=== PATIENT | male | born 1955 | race Caucasian/White ===

== ENCOUNTER 2017-06-11 13:20 | Emergency (ER) | payer OTHER ==
[2017-06-11] MEDS ORDERED: Diph,Pert(Acell),Tet Vac 0.5 ML SYR IM ONE (13:48)
--- NOTE | 2017-06-11 14:17 | Emergency Department Record ---
History of Present Illness - General Chief Complaint: Laceration(s) Stated Complaint: LACERATION ON LEFT KNEE Time Seen by Provider: 06/11/17 13:38 Source: Patient Mode of Arrival: Ambulatory Limitations: No limitations - History of Present Illness Initial Commments: pt cut knee w chain saw, it bounced against him. he wants a tetnus and insists on pcn for prophylaxis since he is a diabetic and it is a dirty wound Onset/Timin -: Minutes(s) Extremity Location: Left: Knee Place: Outdoors Context: Power tool use Associated Symptoms: None - [place] Coma Scale Eye Response: (4) Open spontaneously Motor Response: (6) Obeys commands Verbal Response: (5) Oriented [place] Total: 15 - Related Data Hx Tetanus Toxoid Vaccination: Yes Year of Tetanus Vaccination: unknown Home Medications Medication Instructions Recorded Confirmed Last Taken Glipizide [Glipizide ER] 5 mg PO DAILY 08/27/14 06/11/17 06/11/17 Irbesartan [Avapro] 300 mg PO DAILY 08/27/14 06/11/17 06/11/17 Allergies Allergy/AdvReac Type Severity Reaction Status Date / Time No Known Drug Allergies Allergy Verified 06/11/17 13:30 Travel Screening - Travel/Exposure Within Last 30 Days Have you traveled within the last 30 days?: No - Travel/Exposure Within Last Year Have you traveled outside the [place] in the last year?: No - Additonal Travel Details Have you been exposed to anyone with a communicable illness?: No - Travel Symptoms Symptom Screening: None Review of Systems Reviewed: No additional complaints except as noted below Constitutional: Reports: As per HPI. Denies: Chills, Fever, Malaise, Night sweats, Weakness, Weight change Eyes: Reports: As per HPI. Denies: Eye discharge, Eye pain, Photophobia, Vision change ENT: Reports: As per HPI. Denies: Congestion, Dental pain, Ear pain, Epistaxis , Hearing loss, Throat pain Respiratory: Reports: As per HPI. Denies: Cough, Dyspnea, Hemoptysis, Stridor, Wheezes Cardiovascular: Reports: As per HPI. Denies: Arrhythmia, Chest pain, Dyspnea on exertion, Edema, Murmurs, Orthopnea, Palpitations, Paroxysmal nocturnal dyspnea, Rheumatic Fever, Syncope Endocrine: Reports: As per HPI. Denies: Fatigue, Heat or cold intolerance, Polydipsia, Polyuria Gastrointestinal: Reports: As per HPI. Denies: Abdominal pain, Constipation, Diarrhea, Hematemesis, Hematochezia, Melena, Nausea, Vomiting Genitourinary: Reports: As per HPI. Denies: Dysuria, Frequency, Hematuria, Incontinence, Retention, Testicular pain, Testicular mass, Urgency Musculoskeletal: Reports: As per HPI. Denies: Arthralgia, Back pain, Gout, Joint swelling, Myalgia, Neck pain Skin: Reports: As per HPI. Denies: Bruising, Change in color, Change in hair/ nails, Lesions, Pruritus, Rash Neurological: Reports: As per HPI. Denies: Abnormal gait, Confusion, Headache, Numbness, Paresthesias, Seizure, Tingling, Tremors, Vertigo, Weakness Psychiatric: Reports: As per HPI. Denies: Anxiety, Auditory hallucinations, Depression, Homicidal thoughts, Suicidal thoughts, Visual hallucinations Hematological/Lymphatic: Reports: As per HPI. Denies: Anemia, Blood Clots, Easy bleeding, Easy bruising, Swollen glands Past Medical History - SOCIAL HISTORY Smoking Status: Former smoker Alcohol Use: Heavy Drug Use: None - RESPIRATORY Hx Respiratory Disorders: No Comment:: seasonal allergies - CARDIOVASCULAR Hx Cardio Disorders: Yes Hx Hypertension: Yes - NEURO Hx Headaches: Yes - GI Hx Reflux: Yes - Hx Genitourinary Disorders: No - ENDOCRINE Hx Endocrine Disorders: Yes Hx Diabetes: Yes Hx Thyroid Disease: No - MUSCULOSKELETAL Hx Arthritis: Yes Hx Back Injury: Yes - PSYCH Hx Psych Problems: No - HEMATOLOGY/ONCOLOGY Hx Hematology/Oncology Disorders: No Family Medical History Any Significant Family History?: No Hx Diabetes: Father, Brother/Sister, Grandparents Hx Heart Disease: Father, Mother Hx HTN: Father Physical Exam - General General Appearance: Alert, Oriented x3, Cooperative, Mild distress - Head Head exam: Normal inspection - Eye Eye exam: Normal appearance, PERRL, EOMI Pupils: Normal accommodation - ENT ENT exam: Normal exam, Mucous membranes moist, Normal external ear exam, Normal orophraynx Ear exam: Normal external inspection. negative: External canal tenderness Nasal Exam: Normal inspection. negative: Discharge, Sinus tenderness Mouth exam: Normal external inspection, Tongue normal Teeth exam: Normal inspection. negative: Dental caries Throat exam: Normal inspection. negative: Tonsillar erythema, Tonsillar exudate - Neck Neck exam: Normal inspection, Full ROM. negative: Tenderness - Respiratory Respiratory exam: Normal lung sounds bilaterally. negative: Respiratory distress - Cardiovascular Cardiovascular Exam: Regular rate, Normal rhythm, Normal heart sounds - GI/Abdominal GI/Abdominal exam: Soft, Normal bowel sounds. negative: Tenderness - Rectal Rectal exam: Deferred - exam: Deferred - Extremities Extremities exam: Normal inspection, Full ROM, Normal capillary refill, Tenderness Image of Full Body: 1 - lac 1...4cm 2 - lac 2...3cm 3 - superficial lac - Back Back exam: Reports: Normal inspection, Full ROM. Denies: Muscle spasm, Rash noted, Tenderness - Neurological Neurological exam: Alert, CN II-XII intact, Normal gait, Oriented X3 - Psychiatric Psychiatric exam: Normal affect, Normal mood - Skin Skin exam: Dry, Intact, Normal color, Warm Type of lesion: Laceration Distribution of rash: LLE Course Vital Signs 06/11/17 13:30 Temperature 97.3 F L Pulse Rate [ 88 Pulse Ox Probe] Respiratory 16 Rate Blood Pressure 188/111 [Right Arm] Pulse Ox 95 Disposition Disposition: Discharge Clinical Impression: Lacerations of multiple sites of left leg Qualifiers: Encounter type: initial encounter Qualified Code(s): S81.812A - Laceration without foreign body, left lower leg, initial encounter; S86.922A - Laceration of unspecified muscle(s) and tendon(s) at lower leg level, left leg, initial encounter Hypertension Qualifiers: Hypertension type: essential hypertension Qualified Code(s): I10 - Essential ( primary) hypertension Disposition: Home, Self-Care Condition: (1) Good Instructions: Laceration (ED), Care For Your Stitches (ED) Additional Instructions: follow up with family doctor. return sooner if worse. sutures out in 8 days Forms: Patient Portal Access Quality - Quality Measures Quality Measures: N/A - Blood Pressure Screening Blood Pressure Classification: Hypertensive Reading Systolic Measurement: 188 Diastolic Measurement: 111 Screening for High Blood Pressure: < First Hypertensive BP, F/U Documented > [ G8950] First Hypertensive Follow-up Interventions: Follow-up with rescreen GT 1 day and LT 4 weeks. Laceration - Other - Time Out Informed consent:: Informed consent obtained Start Date:: 06/11/17 Start Time:: 13:45 - Location Location of laceration:: Left Laceration located on:: Knee Length of laceration:: 4 Length of laceration:: cm - Clean and Prep Laceration cleaning method:: Extensive Cleaning, Removal of Particular Matter Laceration cleaning agent:: Shur Clens - Local Anesthetic Lidocaine used:: 1% Lidocaine dose:: 1 mL - Medication Medicated for procedure?: No - Procedural Detail Tissue detail:: Torn, Devitalized, Debridement Foreign body in the wound?: Yes Undermining was preformed?: No Skin suture pattern:: Interrupted Suture material/size:: 5-0: Nylon Number of skin sutures:: 6 Neurovascular intact?: Yes - Post Procedural Detail Complications:: Yes Procedure Tolerated by Patient:: Well Laceration - Other - Time Out Informed consent:: Informed consent obtained Start Date:: 06/11/17 Start Time:: 13:55 - Location Location of laceration:: Left Laceration located on:: Knee Length of laceration:: 3 Length of laceration:: cm - Clean and Prep Laceration cleaning agent:: Shur Clens - Local Anesthetic Lidocaine used:: 1% Lidocaine dose:: 1 mL - Medication Medicated for procedure?: No - Procedural Detail Tissue detail:: Torn, Devitalized, Debridement Foreign body in the wound?: Yes Skin suture pattern:: Interrupted Suture material/size:: 5-0: Nylon Number of skin sutures:: 2
--- NOTE | 2017-06-11 14:37 | Emergency Department Record ---
History of Present Illness - General Chief Complaint: Laceration(s) Stated Complaint: LACERATION ON LEFT KNEE Time Seen by Provider: 06/11/17 13:38 Source: Patient Mode of Arrival: Ambulatory Limitations: No limitations - History of Present Illness Onset/Timin -: Minutes(s) Extremity Location: Left: Knee Place: Outdoors Context: Power tool use Associated Symptoms: None - [place] Coma Scale Eye Response: (4) Open spontaneously Motor Response: (6) Obeys commands Verbal Response: (5) Oriented [place] Total: 15 - Related Data Hx Tetanus Toxoid Vaccination: Yes Year of Tetanus Vaccination: unknown Home Medications Medication Instructions Recorded Confirmed Last Taken Glipizide [Glipizide ER] 5 mg PO DAILY 08/27/14 06/11/17 06/11/17 Irbesartan [Avapro] 300 mg PO DAILY 08/27/14 06/11/17 06/11/17 Previous Rx's Medication Instructions Recorded Penicillin V Potassium 500 mg PO Q6H #28 tab 06/11/17 Allergies Allergy/AdvReac Type Severity Reaction Status Date / Time No Known Drug Allergies Allergy Verified 06/11/17 13:30 Travel Screening - Travel/Exposure Within Last 30 Days Have you traveled within the last 30 days?: No - Travel/Exposure Within Last Year Have you traveled outside the [place] in the last year?: No - Additonal Travel Details Have you been exposed to anyone with a communicable illness?: No - Travel Symptoms Symptom Screening: None Review of Systems Constitutional: Reports: As per HPI. Denies: Chills, Fever, Malaise, Night sweats, Weakness, Weight change Eyes: Reports: As per HPI. Denies: Eye discharge, Eye pain, Photophobia, Vision change ENT: Reports: As per HPI. Denies: Congestion, Dental pain, Ear pain, Epistaxis , Hearing loss, Throat pain Respiratory: Reports: As per HPI. Denies: Cough, Dyspnea, Hemoptysis, Stridor, Wheezes Cardiovascular: Reports: As per HPI. Denies: Arrhythmia, Chest pain, Dyspnea on exertion, Edema, Murmurs, Orthopnea, Palpitations, Paroxysmal nocturnal dyspnea, Rheumatic Fever, Syncope Endocrine: Reports: As per HPI. Denies: Fatigue, Heat or cold intolerance, Polydipsia, Polyuria Gastrointestinal: Reports: As per HPI. Denies: Abdominal pain, Constipation, Diarrhea, Hematemesis, Hematochezia, Melena, Nausea, Vomiting Genitourinary: Reports: As per HPI. Denies: Dysuria, Frequency, Hematuria, Incontinence, Retention, Testicular pain, Testicular mass, Urgency Musculoskeletal: Reports: As per HPI. Denies: Arthralgia, Back pain, Gout, Joint swelling, Myalgia, Neck pain Skin: Reports: As per HPI. Denies: Bruising, Change in color, Change in hair/ nails, Lesions, Pruritus, Rash Neurological: Reports: As per HPI. Denies: Abnormal gait, Confusion, Headache, Numbness, Paresthesias, Seizure, Tingling, Tremors, Vertigo, Weakness Psychiatric: Reports: As per HPI. Denies: Anxiety, Auditory hallucinations, Depression, Homicidal thoughts, Suicidal thoughts, Visual hallucinations Hematological/Lymphatic: Reports: As per HPI. Denies: Anemia, Blood Clots, Easy bleeding, Easy bruising, Swollen glands Past Medical History - SOCIAL HISTORY Smoking Status: Former smoker Alcohol Use: Heavy Drug Use: None - RESPIRATORY Hx Respiratory Disorders: No Comment:: seasonal allergies - CARDIOVASCULAR Hx Cardio Disorders: Yes Hx Hypertension: Yes - NEURO Hx Headaches: Yes - GI Hx Reflux: Yes - Hx Genitourinary Disorders: No - ENDOCRINE Hx Endocrine Disorders: Yes Hx Diabetes: Yes Hx Thyroid Disease: No - MUSCULOSKELETAL Hx Arthritis: Yes Hx Back Injury: Yes - PSYCH Hx Psych Problems: No - HEMATOLOGY/ONCOLOGY Hx Hematology/Oncology Disorders: No Family Medical History Any Significant Family History?: No Hx Diabetes: Father, Brother/Sister, Grandparents Hx Heart Disease: Father, Mother Hx HTN: Father Physical Exam - General Limitations: No limitations Course Vital Signs 06/11/17 13:30 Temperature 97.3 F L Pulse Rate [ 88 Pulse Ox Probe] Respiratory 16 Rate Blood Pressure 188/111 [Right Arm] Pulse Ox 95 - Reevaluation(s) Reevaluation #1: 06/11/17 14:35 pt insisted on pcn rather then keflex Disposition Clinical Impression: Lacerations of multiple sites of left leg Qualifiers: Encounter type: initial encounter Qualified Code(s): S81.812A - Laceration without foreign body, left lower leg, initial encounter Hypertension Qualifiers: Hypertension type: essential hypertension Qualified Code(s): I10 - Essential ( primary) hypertension Disposition: Home, Self-Care Condition: (1) Good Instructions: Care For Your Stitches (ED), Laceration (ED) Additional Instructions: follow up with family doctor. return sooner if worse. sutures out in 8 days Prescriptions: Penicillin V Potassium 500 mg PO Q6H #28 tab Forms: Patient Portal Access Quality - Quality Measures Quality Measures: N/A - Blood Pressure Screening Blood Pressure Classification: Hypertensive Reading Systolic Measurement: 188 Diastolic Measurement: 111 Screening for High Blood Pressure: < First Hypertensive BP, F/U Documented > [ G8950] First Hypertensive Follow-up Interventions: Follow-up with rescreen GT 1 day and LT 4 weeks.
== END 2017-06-11 14:42 | disposition home or self-care (01) ==
LOC: ER 13:20
DX: S86.922A Laceration of unspecified muscle(s) and tendon(s) at lower leg level, left leg, initial encounter (principal); E11.9 Type 2 diabetes mellitus without complications; I10 Essential (primary) hypertension; Z87.891 Personal history of nicotine dependence; W31.2XXA Contact with powered woodworking and forming machines, initial encounter; Y92.89 Other specified places as the place of occurrence of the external cause
CPT/HCPCS: 12032; 90715; 96372; 99283; 99284

== ENCOUNTER 2017-06-14 09:48 | Emergency (ER) | payer OTHER ==
--- NOTE | 2017-06-14 10:13 | Emergency Department Record ---
History of Present Illness - General Chief Complaint: Wound, check Stated Complaint: LEFT KNEE RECHECK Time Seen by Provider: 06/14/17 10:01 Source: Patient Mode of arrival: Ambulatory Limitations: No limitations - History of Present Illness Initial Comments: The patient had a chain saw injury to his L knee 3 days ago. He noticed some drainage last evening and wanted the wound rechecked. Today the drainage is gone and he denies any pain, drainage, or swelling. MD Complaint: Wound re-check Onset/Timin -: Days(s) Initial Visit For: Laceration Returns Today for: Wound recheck Symptoms Since Prior Visit: No new symptoms Associated Symptoms: Other Treatments Prior to Arrival: Dressings, Given antibiotics on initial visit - Related Data Home Medications Medication Instructions Recorded Confirmed Last Taken Glipizide [Glipizide ER] 5 mg PO DAILY 08/27/14 06/14/17 06/14/17 Irbesartan [Avapro] 300 mg PO DAILY 08/27/14 06/14/17 06/14/17 Previous Rx's Medication Instructions Recorded Penicillin V Potassium 500 mg PO Q6H #28 tab 06/11/17 Cephalexin [Keflex] 500 mg PO QID #20 cap 06/14/17 Allergies Allergy/AdvReac Type Severity Reaction Status Date / Time bacitracin Allergy ITCHING Verified 06/14/17 09:54 [From Neosporin ([id number])] neomycin Allergy ITCHING Verified 06/14/17 09:54 [From Neosporin ([id number])] polymyxin B Allergy ITCHING Verified 06/14/17 09:54 [From Neosporin ([id number])] Travel Screening - Travel/Exposure Within Last 30 Days Have you traveled within the last 30 days?: No - Travel/Exposure Within Last Year Have you traveled outside the [place] in the last year?: No - Additonal Travel Details Have you been exposed to anyone with a communicable illness?: No - Travel Symptoms Symptom Screening: None Past Medical History - SOCIAL HISTORY Smoking Status: Former smoker Alcohol Use: Heavy Alcohol Use Comment: beer Drug Use: None - RESPIRATORY Hx Respiratory Disorders: No Comment:: seasonal allergies - CARDIOVASCULAR Hx Cardio Disorders: Yes Hx Hypertension: Yes - NEURO Hx Headaches: Yes - GI Hx Reflux: Yes - Hx Genitourinary Disorders: No - ENDOCRINE Hx Endocrine Disorders: Yes Hx Diabetes: Yes Hx Thyroid Disease: No - MUSCULOSKELETAL Hx Arthritis: Yes Hx Back Injury: Yes - PSYCH Hx Psych Problems: No - HEMATOLOGY/ONCOLOGY Hx Hematology/Oncology Disorders: No Family Medical History Any Significant Family History?: Yes Hx Diabetes: Father, Brother/Sister, Grandparents Hx Heart Disease: Father, Mother Hx HTN: Father Physical Exam - General General Appearance: Alert, Cooperative, No acute distress - Head Head exam: Atraumatic, Normocephalic - Eye Eye exam: Normal appearance, PERRL - Extremities Extremities exam: Full ROM (There is no pain with ROM of the knee.). negative: Normal inspection (There is healing lacerations to the anterior knee. There is no tenderness or drainage to any of the suture areas or wound areas. The wounds do not appear infected.) Course Vital Signs 06/14/17 09:58 Temperature 97.5 F L Pulse Rate 77 Respiratory 18 Rate Blood Pressure 183/103 Pulse Ox 97 - Reevaluation(s) Reevaluation #1: I did discuss the need to continue proper wound care and to have the suture removed as planned. 06/14/17 10:15 Disposition Disposition: Discharge Clinical Impression: Visit for wound check Disposition: Home, Self-Care Condition: (1) Good Instructions: Acute Wound Care (ED) Additional Instructions: Keep dressed during the day and please stop the Pen VK. Start the Keflex as directed. Return to the ER for any problems. Prescriptions: Cephalexin [Keflex] 500 mg PO QID #20 cap Forms: Patient Portal Access Time of Disposition: 10:12 Quality - Quality Measures Quality Measures: N/A - Blood Pressure Screening View Details: Yes Blood Pressure Classification: Hypertensive Reading Systolic Measurement: 183 Diastolic Measurement: 103 Screening for High Blood Pressure: < Pre-Hypertensive BP, F/U Documented > [ G8950] Pre-Hypertensive Follow-up Interventions: Follow-up with rescreen every year.
== END 2017-06-14 10:19 | disposition home or self-care (01) ==
LOC: ER 09:48
DX: S86.922A Laceration of unspecified muscle(s) and tendon(s) at lower leg level, left leg, initial encounter (principal); W31.2XXA Contact with powered woodworking and forming machines, initial encounter; Y92.89 Other specified places as the place of occurrence of the external cause
CPT/HCPCS: 99282

== ENCOUNTER 2018-08-04 10:40 | Emergency (ER) | payer OTHER ==
[2018-08-04] MEDS ORDERED: ERYTHROMYCIN OPTH OINT 3.5GM OPTH ONE (11:01)
--- NOTE | 2018-08-04 11:05 | Emergency Department Record ---
History of Present Illness - General Chief complaint: Rash Stated complaint: POISON LAMIN IN EYE Time Seen by Provider: 08/04/18 10:52 Source: Patient Mode of Arrival: Ambulatory Limitations: No limitations - History of Present Illness Initial comments: The patient has had an itchy rash that he felt was poison lamin on his arms for about a week. Now he woke up this AM with his R upper eyelid slightly swollen and itchy. There has been no visual changes, eye drainage, eye pain or trouble breathing. The arm rash is now improved. The patient also has a long hx of poorly controlled HTN and has an appointment with his PCP soon. MD complaint: Rash Onset/Timin -: Week(s) Hx Tetanus Toxoid Vaccination: Yes Year of Tetanus Vaccination: 2012 Consistency: Constant Improves with: None Worsens with: None Treatments Prior to Arrival: None - Related Data Home Medications Medication Instructions Recorded Confirmed Last Taken Saxagliptin HCl [Onglyza] 5 mg PO DAILY 08/04/18 08/04/18 08/04/18 Previous Rx's Medication Instructions Recorded Cetirizine HCl [Zyrtec] 10 mg PO DAILY #7 tablet 08/04/18 Allergies Allergy/AdvReac Type Severity Reaction Status Date / Time bacitracin Allergy ITCHING Verified 06/14/17 09:54 [From Neosporin ([id number])] neomycin Allergy ITCHING Verified 06/14/17 09:54 [From Neosporin ([id number])] polymyxin B Allergy ITCHING Verified 06/14/17 09:54 [From Neosporin ([id number])] Travel Screening - Travel/Exposure Within Last 30 Days Have you traveled within the last 30 days?: No - Travel/Exposure Within Last Year Have you traveled outside the [place] in the last year?: No - Additonal Travel Details Have you been exposed to anyone with a communicable illness?: No - Travel Symptoms Symptom Screening: None Review of Systems Constitutional: Denies: Chills, Fever Eyes: Denies: Eye discharge, Eye pain, Photophobia ENT: Denies: Congestion Respiratory: Denies: Cough, Dyspnea Cardiovascular: Denies: Chest pain Past Medical History - SOCIAL HISTORY Smoking Status: Former smoker Alcohol Use: Occasional Drug Use: None - RESPIRATORY Hx Respiratory Disorders: No Comment:: seasonal allergies - CARDIOVASCULAR Hx Cardio Disorders: Yes Hx Hypertension: Yes - NEURO Hx Headaches: Yes - GI Hx Reflux: Yes - Hx Genitourinary Disorders: No - ENDOCRINE Hx Endocrine Disorders: Yes Hx Diabetes: Yes Hx Thyroid Disease: No - MUSCULOSKELETAL Hx Arthritis: Yes Hx Back Injury: Yes - PSYCH Hx Psych Problems: No - HEMATOLOGY/ONCOLOGY Hx Hematology/Oncology Disorders: No Family Medical History Any Significant Family History?: No Hx Diabetes: Father, Brother/Sister, Grandparents Hx Heart Disease: Father, Mother Hx HTN: Father Physical Exam - General General Appearance: Alert, Oriented x3, Cooperative, No acute distress - Head Head exam: Atraumatic, Normocephalic, Normal inspection - Eye Eye exam: PERRL, EOMI, Periorbital swelling (There is very mild R upper eyelid edema and erythema. There is no tenderness or warmth.), Other (The R cornea is clear with no flourescein staining.). negative: Normal appearance, Conjunctival injection, Periorbital tenderness - ENT ENT exam: Normal exam (There is no rash to the face other than the R upper eyelid.) Throat exam: Normal inspection. negative: Tonsillar erythema, Tonsillar exudate - Neck Neck exam: Normal inspection, Full ROM. negative: Tenderness - Respiratory Respiratory exam: Normal lung sounds bilaterally. negative: Respiratory distress Course Vital Signs 08/04/18 10:43 Temperature 98.4 F Pulse Rate 84 Respiratory 18 Rate Blood Pressure 197/115 Pulse Ox 98 - Reevaluation(s) Reevaluation #1: I did explain to the patient that I cannot give him oral steroids due to his Diabetes. His BP is significantly elevated but that has been normal for him when he comes to the ER. He is to see his PCP next week for the eye condition and BP. 08/04/18 11:13 Reevaluation #2: The patient's BP was still very elevated on recheck which has been normal for him here in the ER. I offered to do an IV and lab work and start the patient on BP medicines but he refused. He now states he does have a HTN pill that his PCP gave him but he has refused to take it. I then explained to him that by NOT treating his BP he could go home and have an [place], stroke, be disabled and even . The patient understands and accepts the risks. He presently has proper decision making capacity and understands the risks of refusing. 08/04/18 11:18 Disposition Disposition: Discharge Clinical Impression: Skin rash Disposition: Home, Self-Care Condition: (2) Stable Instructions: Acute Rash (ED) Additional Instructions: Please use cool compresses to the R upper eyelid when possible and use the Emycin opthalmic ointment 4 times a day for 5 days. Please take the Zyrtec for 7 days. Please see your family doctor next week for recheck of the eye and your BP. Prescriptions: Cetirizine HCl [Zyrtec] 10 mg PO DAILY #7 tablet Forms: Patient Portal Access Time of Disposition: 11:16 Quality - Quality Measures Quality Measures: N/A - Blood Pressure Screening View Details: Yes Does Patient Have Any of the Following: Active Dx of HTN Blood Pressure Classification: Hypertensive Reading Systolic Measurement: 178 Diastolic Measurement: 100 Screening for High Blood Pressure: Patient Exclusion, Hx of HTN [G9744]
== END 2018-08-04 11:29 | disposition home or self-care (01) ==
LOC: ER 10:40
DX: R21 Rash and other nonspecific skin eruption (principal); I10 Essential (primary) hypertension; E11.9 Type 2 diabetes mellitus without complications; Z87.891 Personal history of nicotine dependence
CPT/HCPCS: 99282; 99283

== ENCOUNTER 2018-12-22 17:39 | Emergency (ER) | payer OTHER ==
--- NOTE | 2018-12-22 17:57 | Emergency Department Record ---
History of Present Illness - General Chief complaint: Head Injury Stated complaint: HEAD INJURY Time Seen by Provider: 12/22/18 17:51 Source: Patient Mode of Arrival: Ambulatory Limitations: No limitations - History of Present Illness Initial comments: 63 yo male presents after a fall, slipping back hitting his posterior head. He saw stars for a few seconds. He has a current mild headache. He is not on any anticoagulants. No vomiting. No other pain or injuries. No neck, back, or extremity complaints. Tetanus is up to date. He had some bleeding so he came to the ED. He declines the need for any pain medication at this time. Complaint: Head injury Onset/Timin -: Minutes(s) Mechanism of Injury: Mechanical fall, Other Location: Occipital Loss of Consciousness: No Place: Home Radiation: None Consistency: Constant, Other (Improving) Provoking factors: None known Other Injuries: None Associated Symptoms: Other - Related Data Allergies/Adverse reactions: Allergies Allergy/AdvReac Type Severity Reaction Status Date / Time bacitracin Allergy ITCHING Verified 06/14/17 09:54 [From Neosporin ([id number])] neomycin Allergy ITCHING Verified 06/14/17 09:54 [From Neosporin ([id number])] polymyxin B Allergy ITCHING Verified 06/14/17 09:54 [From Neosporin ([id number])] Travel Screening - Travel/Exposure Within Last 30 Days Have you traveled within the last 30 days?: No - Travel/Exposure Within Last Year Have you traveled outside the [place] in the last year?: No - Additonal Travel Details Have you been exposed to anyone with a communicable illness?: No Review of Systems Constitutional: Denies: Chills, Fever, Weakness Eyes: Reports: Other (Saw stars after hitting his head). Denies: Eye discharge , Eye pain, Photophobia, Vision change ENT: Denies: Congestion, Dental pain, Ear pain, Epistaxis, Throat pain Respiratory: Denies: Cough, Dyspnea Cardiovascular: Denies: Chest pain, Palpitations, Syncope Endocrine: Denies: Fatigue, Polydipsia, Polyuria Gastrointestinal: Denies: Abdominal pain, Diarrhea, Nausea, Vomiting Genitourinary: Denies: Dysuria, Frequency, Hematuria Musculoskeletal: Denies: Arthralgia, Back pain, Myalgia Skin: Denies: Bruising, Change in color, Rash Neurological: Reports: Headache (mild). Denies: Abnormal gait, Confusion, Numbness, Paresthesias, Seizure, Tingling, Tremors, Vertigo, Weakness Psychiatric: Denies: Anxiety Hematological/Lymphatic: Denies: Blood Clots, Easy bleeding, Easy bruising, Swollen glands Past Medical History - SOCIAL HISTORY Smoking Status: Former smoker Alcohol Use: Heavy Alcohol Use Comment: 6 beers daily Drug Use: None - RESPIRATORY Hx Respiratory Disorders: No Comment:: seasonal allergies - CARDIOVASCULAR Hx Cardio Disorders: Yes Hx Hypertension: Yes - NEURO Hx Headaches: Yes - GI Hx Reflux: Yes - Hx Genitourinary Disorders: No - ENDOCRINE Hx Endocrine Disorders: Yes Hx Diabetes: Yes Hx Thyroid Disease: No - MUSCULOSKELETAL Hx Arthritis: Yes Hx Back Injury: Yes - PSYCH Hx Psych Problems: No - HEMATOLOGY/ONCOLOGY Hx Hematology/Oncology Disorders: No Family Medical History Any Significant Family History?: No Hx Diabetes: Father, Brother/Sister, Grandparents Hx Heart Disease: Father, Mother Hx HTN: Father Physical Exam - General General Appearance: Alert, Oriented x3, Cooperative, No acute distress, Other ( Well appearing, conversational, NAD) Limitations: No limitations - Head Head exam: negative: Atraumatic, Normal inspection Head exam detail: Abrasion. negative: Contusion, Hematoma, Laceration Image of Face/Head: 1 - abrasion, superficial - Eye Eye exam: PERRL, EOMI. negative: Normal appearance, Conjunctival injection, Nystagmus, Periorbital swelling, Periorbital tenderness, Scleral icterus Pupils: Normal accommodation. negative: Irregular, Unequal - ENT ENT exam: Normal exam, Mucous membranes moist, Normal orophraynx Ear exam: Normal external inspection Nasal Exam: Normal inspection Mouth exam: Normal external inspection Teeth exam: Normal inspection - Neck Neck exam: Normal inspection - Respiratory Respiratory exam: Normal lung sounds bilaterally. negative: Respiratory distress - Cardiovascular Cardiovascular Exam: Regular rate, Normal rhythm, Normal heart sounds - GI/Abdominal GI/Abdominal exam: Soft. negative: Tenderness - Rectal Rectal exam: Deferred - exam: Deferred - Extremities Extremities exam: Normal inspection. negative: Full ROM, Normal capillary refill, Pedal edema, Tenderness - Back Back exam: Reports: Normal inspection. Denies: CVA tenderness (R), CVA tenderness (L), Muscle spasm, Paraspinal tenderness, Tenderness, Vertebral tenderness - Neurological Neurological exam: Alert, CN II-XII intact, Normal gait, Oriented X3, Other ( Steady gate,). negative: Abnormal gait, Altered, Motor sensory deficit - Psychiatric Psychiatric exam: Normal affect, Normal mood. negative: Agitated, Anxious, Depressed, Flat affect - Skin Skin exam: Abrasion, Dry, Normal color, Warm Course Vital Signs 12/22/18 17:45 Temperature 98.2 F Pulse Rate 79 Respiratory 18 Rate Blood Pressure 220/119 Pulse Ox 97 - Reevaluation(s) Reevaluation #1: 12/22/18 19:07 The HCT report was received from the radiologist. The patient has a 3mm left sided subdural hematoma, no mass effect or shift The patient was informed of the bleed from the fall. 12/22/18 19:12 The patient was informed of the diagnoses of subdural hemorrhage on the left side. I recommended immediate transfer to [facility] for evaluation and treatment. I explained this can be a life threatening condition that can kill him or cause permanent injury or disability. Any delays in treatment can lead to increased risks in worsening leading to the grave consequences we discussed. He is essentially completely asymptomatic at this time, he he clear thoughts, he has capacity to make his own decisions,he is calm, rational and he does not demonstrate any signs of impairment. We discussed the findings and recommendations multiple times and he states for personal reasons there is no way he will consent to transfer. He repeated the list of possible bad outcomes back to me with very good understanding of my recommendations. He understands signing out AMA he is assuming the risk of the bad outcomes. I informed the patient he should not work until he is seen by a specialist and cleared to return. He was given a disc with the CT on it He was encouraged to go directly to [facility] or call and ambulance 12/22/18 19:23 Even thought the patient signed out AMA I called [facility] in the even the patient does presents to [facility]. I SW Dr De La Fuente of Trauma to inform him this may be possible given the patient informed me he may drive himself to [place] 12/22/18 19:31 He was informed his blood pressure is elevated as well. He states his baseline is 170/90. I recommended calling his doctor for this as well. 12/22/18 19:31 Disposition Disposition: Discharge Clinical Impression: Subdural hematoma Disposition: Against Medical Advice Condition: (3) Guarded Instructions: Hematoma (ED), Subdural Hematoma (ED) Additional Instructions: Return or go directly to [facility] at anytime to be admitted You are leaving signing out with a subdural hematoma. This is an area of bleeding between the brain and the skull. You can possibly get a lot worse very soon, you can get dizzy, have a seizure, have permanent injury or disability from this injury. I have clearly explained your diagnoses and recommendation for immediately transfer to a Trauma Center that has a Neurosurgeon. By not going you are signing out Against Medical Advice. You may go home and even . Call an ambulance or return any time. Forms: Patient Portal Access Time of Disposition: 19:31 Quality - Quality Measures Quality Measures: N/A, Blunt Head Trauma (>2yr) - [place] Coma Scale [place] Coma Scale: Shun Coma Scale Eye Response: (4) Open spontaneously Motor Response: (6) Obeys commands Verbal Response: (5) Oriented Shun Total: 15 - Blunt Head Trauma - Adult Quality Measure: Measure #415: Utilization of CT for Minor Blunt Head Trauma ICD10 Codes Entered: Yes Was CT ordered: Yes Does Patient Have Any of the Following: No Exclusions Patient Presented Within 24 Hours of Injury: Yes [place] Score: [address] for Minor Blunt Head Trauma: < CT Done, Appropriate Indication > [G9529] Additional Inclusion Criteria: Within 24hrs (AND) GCS of 15 (AND) CT ordered. [ G9530] Indications For CT: Dangerous Mechanism of Injury - Blood Pressure Screening Does Patient Have Any of the Following: Active Dx of HTN Blood Pressure Classification: Hypertensive Reading Systolic Measurement: 220 Diastolic Measurement: 119 Screening for High Blood Pressure: Patient Exclusion, Hx of HTN [G9744]
--- NOTE | 2018-12-24 21:49 | CT SCAN REPORT ---
EXAM: CT SCAN HEAD WO CONTRAST HISTORY: FALL, HEAD INJURY. TECHNIQUE: Noncontrast CT brain. COMPARISON: None. FINDINGS: Left-sided crescentic holohemispheric hyperdense subdural collection compatible with hematoma measuring maximally 3 mm in thickness. No significant mass effect. No midline shift. No additional areas of intracranial hemorrhage are detected. Ventricle sizes are within normal limits. Mild periventricular white matter hypoattenuation, likely small vessel ischemic change. Basal cisterns are not effaced. No calvarial fracture is detected. Visualized paranasal sinuses and mastoid air cells are clear. IMPRESSION: 1. SMALL LEFT-SIDED ACUTE SUBDURAL HEMATOMA WITHOUT SIGNIFICANT MASS EFFECT. FINDING WAS DISCUSSED WITH ORDERING PROVIDER, DR. JUAREZ, AT TIME OF INTERPRETATION. 2. NO ADDITIONAL ACUTE INTRACRANIAL FINDINGS. 3. LIKELY MILD CHRONIC SMALL VESSEL ISCHEMIC WHITE MATTER CHANGES. JOB NUMBER: [id number] MTDD
== END 2018-12-22 19:19 | disposition left against medical advice (07) ==
LOC: ER 17:39
DX: S06.5X0A Traumatic subdural hemorrhage without loss of consciousness, initial encounter (principal); R51 Headache; E11.9 Type 2 diabetes mellitus without complications; W00.0XXA Fall on same level due to ice and snow, initial encounter; Y92.007 Garden or yard of unspecified non-institutional (private) residence as the place of occurrence of the external cause; Z87.891 Personal history of nicotine dependence
CPT/HCPCS: 70450; 99283; 99284